=== PATIENT | female | born 1975 | race Caucasian/White ===

== ENCOUNTER 2020-10-01 12:49 | Outpatient (CLI) | payer OTHER | END 2020-10-01 12:50 | disposition home or self-care (01) | LOC: NUCLEAR 12:49 | PROVIDERS: ATTEND Internal Medicine Cardiovascular Disease | DX: R06.00 Dyspnea, unspecified (principal); I42.7 Cardiomyopathy due to drug and external agent ==

== ENCOUNTER 2021-03-20 10:40 | Outpatient (CLI) | payer OTHER | END 2021-03-20 10:44 | disposition home or self-care (01) | LOC: NUCLEAR 10:40 | PROVIDERS: ATTEND Internal Medicine Cardiovascular Disease | DX: I10 Essential (primary) hypertension (principal); C50.912 Malignant neoplasm of unspecified site of left female breast ==